=== PATIENT | female | born 1985 | race Asian ===

== ENCOUNTER 2021-07-27 08:50 | Emergency (ER) | payer SELFPAY ==
[~2021-07-27] VITALS: Ht 152.4 cm; Wt 52.2 kg
--- NOTE | 2021-07-27 08:50 | NUR ---
PT BIB SELF C/O PAINFUL URINATION, ITCHYNESS AND SORENESS ON THE VAGINAL AREA. PT IS AAOX4, NOT IN RESPIRATORY DISTRESS, V/S STABLE, KEPT RESTED AND COMFORTABLE. WILL CONTINUE TO MONITOR.
--- NOTE | 2021-07-27 09:15 | NUR ---
URINE SPECIMEN COLLECTED AND SENT TO LAB.
--- NOTE | 2021-07-27 09:23 | NUR ---
SEEN AND EXAMINED BY .
[2021-07-27 09:30] LABS: BILIRUBIN,URINE SMALL (NEGATIVE); COLOR,URINE YELLOW (YELLOW); LEUKOCYTE ESTERASE ,URINE LARGE (NEGATIVE); NITRITE, URINE NEGATIVE (NEGATIVE); PH,URINE 6.5 (5.0-8.0); PROTEIN,URINE 100 mg/dl (NEGATIVE); UGLUCOSE NEGATIVE (NEGATIVE); UROBILINOGEN,URINE 0.2 EU/dL (0.2)
[2021-07-27 09:48] LABS: BACTERIA,URINE Few /HPF (None Seen); SQUAMOUS EPITHELIAL CELL,UR Few /HPF (None Seen)
--- NOTE | 2021-07-27 11:28 | NUR ---
CHAPERONED ER MD DURING PELVIC EXAM
--- NOTE | 2021-07-27 11:33 | NUR ---
wet mount swab sent to the lab
[2021-07-27] MEDS ORDERED: CEPH500C2 PO (13:00)
[2021-07-27] MEDS ORDERED: VALA10002 PO (13:00)
[2021-07-27 13:29] VITALS: BP 128/82
--- NOTE | 2021-07-27 13:29 | NUR ---
Patient discharged to home in stable condition. Written and verbal after care instructions given. Patient verbalizes understanding of instruction.
== END 2021-07-27 13:30 | disposition home or self-care (01) ==
LOC: ER 08:55
DX: B00.9 Herpesviral infection, unspecified (principal); N39.0 Urinary tract infection, site not specified; R30.0 Dysuria
CPT/HCPCS: 36415; 81001; 84703-TC; 86592; 87086-TC; 87186-TC; 87210-TC; 87491; 87591